=== PATIENT | male | born 1960 | race Caucasian/White ===

== ENCOUNTER 2022-07-30 05:15 | Emergency (ER) | payer OTHER ==
[~2022-07-30] VITALS: Ht 170.2 cm; Wt 90.0 kg
[2022-07-30] MEDS ORDERED: KETOROLAC 30MG/ML VIAL IV STA (06:36)
[2022-07-30] MEDS ORDERED: SODIUM CHLORIDE 0.9% 1,000 ML IV ONE (06:45)
[2022-07-30] MEDS ORDERED: METOCLOPRAMIDE HCL 10MG/2ML VIAL IV ONE (06:45)
[2022-07-30] MEDS ORDERED: KETOROLAC 30MG/ML VIAL IV NR (09:15)
[2022-07-30] MEDS ORDERED: METOCLOPRAMIDE HCL 10MG/2ML VIAL IV NR (09:15)
[2022-07-30 10:04] VITALS: BP 170/80
[2022-07-30] MEDS ORDERED: METO-293 PO (10:05)
[2022-07-30] MEDS ORDERED: TOPUD PO (10:05)
== END 2022-07-30 12:11 | disposition home or self-care (01) ==
LOC: ER 05:15
DX: R51.9 Headache, unspecified (principal); R03.0 Elevated blood-pressure reading, without diagnosis of hypertension
CPT/HCPCS: 70450; 96361; 96374; 96375; 99284; J1885; J2765; J7030

== ENCOUNTER 2025-05-04 17:51 | Emergency (ER) | payer SELFPAY ==
[~2025-05-04] VITALS: Ht 167.6 cm; Wt 82.0 kg
[~2025-05-04 17:51] MED LIST: METO-293 PO; TOPUD PO
[2025-05-04 17:53] VITALS: O2SAT 98
[2025-05-04 18:09] VITALS: TEMP 36.9; O2SAT 97
[2025-05-04] MEDS: FLUORESCEIN SODIUM 1MG/STRIP BOTHEYE ONE (18:30)
[2025-05-04] MEDS: TETRACAINE 0.5% OPHTH DROPS 4ML BOTHEYE ONE (18:30)
[2025-05-04] MEDS ORDERED: TOPUD PO (21:21)
[2025-05-04] MEDS ORDERED: CIPR2.5D17 RIGHTEYE (21:21)
[2025-05-04] MEDS ORDERED: IBUP-2029 MT (21:21)
[2025-05-04] MEDS ORDERED: KETO5DRO80 RIGHTEYE (21:21)
[2025-05-04 21:43] VITALS: BP 165/86; PULSE 84; RESP 14
[2025-05-04] MEDS: KETOROLAC 30MG/ML VIAL IM ONE (21:43)
[2025-05-04 21:44] VITALS: TEMP 98.5
[2025-05-04] MEDS: ACETAMINOPHEN 325MG TABLET PO ONE (21:44)
== END 2025-05-04 21:54 | disposition home or self-care (01) ==
LOC: ER 17:51
DX: T15.01XA Foreign body in cornea, right eye, initial encounter (principal); R51.9 Headache, unspecified; W44.9XXA Unspecified foreign body entering into or through a natural orifice, initial encounter; Y93.89 Activity, other specified; Y92.89 Other specified places as the place of occurrence of the external cause; Y99.8 Other external cause status
CPT/HCPCS: 99285; 70480; 65222; 96372; J1885